=== PATIENT | female | born 1945 | race Native Hawaiian/Other Pacific Islander ===

== ENCOUNTER 2021-11-14 21:12 | Emergency (ER) | payer OTHER ==
[~2021-11-14] VITALS: Ht 162.6 cm; Wt 67.1 kg
[~2021-11-14 21:12] MED LIST: ACET160S2 PO; ACET650S18 RE; ALPR0.5T24 PO; AMMONIUM LACTATE12 % EX; BUSPIRONE7.5 MG PO; CLOP75TA2 PO; COUGH100 MG/5 M PO; DIPH25CA90 PO; DITROPAN XL10 MG PO; DOCU100C10 PO; GRALISE600 MG PO; HYDR5TAB9 PO; IMODIUM A-D PO; INCRUSE EL62.5 MCG/I IN; IPRATROPIUM/ IN; KP FOLIC ACID1 MG PO; LEVO0.1T6 PO; NYST100010 EX; OMEP40CA PO; PROZAC10 MG PO; REMERON SOLTAB15 MG PO; TRAM50TA PO; TRAZ50TA36 PO; VITAMIN C1 CH1 PO; ZANAFLEX2 MG PO; ZYPREXA ZYDI10 MG PO; [UNRECOGNIZED DRUG - OTHER] PO; [UNRECOGNIZED DRUG - OTHER] PR
[2021-11-14 22:03] LABS: PLATELET COUNT 212 K/uL (152-353)
[2021-11-14 22:16] LABS: POTASSIUM 3.5 mmol/L (3.6-5.2)
[2021-11-14 23:09] VITALS: BP 182/69; TEMP 98.7
[2021-11-15] MEDS ORDERED: ASPIR-8181 MG PO (13:12)
[2021-11-15] MEDS ORDERED: LIPITOR40 MG PO (13:12)
[2021-11-15] MEDS ORDERED: OXYC5TAB53 PO (13:14)
[2021-11-15] MEDS ORDERED: FE TABS325 MG PO (13:15)
[2021-11-15] MEDS ORDERED: GABA300C2 PO (13:15)
[2021-11-15] MEDS ORDERED: ALPR0.5T24 PO (13:18)
[2021-11-15] MEDS ORDERED: PANTOPRAZOLE SO40 M2 PO (13:19)
[2021-11-15] MEDS ORDERED: ZOLOFT25 MG PO (13:20)
[2021-11-15] MEDS ORDERED: CYCLOBENZAPRINE10 MG PO (13:48)
[2021-11-15] MEDS ORDERED: LOPERAMIDE2 MG PO (13:49)
== END 2021-11-14 23:11 | disposition still patient (30) ==
LOC: EDBD 21:12 → ED 21:12
PROVIDERS: Emergency Medicine
DX: R46.89 Other symptoms and signs involving appearance and behavior (principal); I10 Essential (primary) hypertension; Z11.52 Encounter for screening for COVID-19; Z04.6 Encounter for general psychiatric examination, requested by authority; F17.210 Nicotine dependence, cigarettes, uncomplicated
CPT/HCPCS: 36415; 80053; 85027; 87635; 93005; 99283; U0003

== ENCOUNTER 2021-12-23 03:05 | Emergency (ER) | payer OTHER ==
[~2021-12-23] VITALS: Ht 162.6 cm; Wt 65.3 kg
[~2021-12-23 03:05] MED LIST changes: +ABILIFY MYCITE5 MG PO; +ASPIR-8181 MG PO; +CLONAZEP ODT0.25 MG PO; +CYCLOBENZAPRINE10 MG PO; +DONE5TAB PO; +FE TABS325 MG PO; +GABA300C2 PO; +GABA400C2 PO; +LIPITOR40 MG PO; +LOPERAMIDE2 MG PO; +MAGN400T4 PO; +MELATONIN MAXIMU5 MG PO; +MEMA5TAB PO; +OXYC5TAB53 PO; +PANTOPRAZOLE SO40 M2 PO; +SERT50TA PO; +ZOLOFT25 MG PO
[2021-12-23 04:15] LABS: POTASSIUM 3.8 mmol/L (3.6-5.2)
[2021-12-23 04:23] LABS: PLATELET COUNT 186 K/uL (152-353)
[2021-12-23 06:23] VITALS: BP 176/80; TEMP 98.2
[2021-12-23] MEDS ORDERED: CEFUROXIME500 MG PO (10:20)
[2021-12-23] MEDS ORDERED: ALPR0.5T24 PO (10:21)
[2021-12-23] MEDS ORDERED: ZOLOFT25 MG PO (10:25)
[2021-12-23] MEDS ORDERED: MAGN400T4 PO (10:49)
[2021-12-23] MEDS ORDERED: SERT50TA PO (11:06)
== END 2021-12-23 06:25 | disposition home or self-care (01) ==
LOC: ED 03:05
PROVIDERS: Emergency Medicine
DX: F03.91 Unspecified dementia, unspecified severity, with behavioral disturbance (principal); Z11.52 Encounter for screening for COVID-19; Z04.6 Encounter for general psychiatric examination, requested by authority; Z79.899 Other long term (current) drug therapy; Z51.81 Encounter for therapeutic drug level monitoring
CPT/HCPCS: 36415; 80053; 81000; 85027; 87086; 87088; 87635; 93005; 99283; U0003

== ENCOUNTER 2022-02-04 22:14 | Emergency (ER) | payer OTHER ==
[~2022-02-04] VITALS: Ht 162.6 cm; Wt 66.2 kg
[~2022-02-04 22:14] MED LIST changes: +ARIPIPRAZOLE10 MG PO; +CEFUROXIME500 MG PO; +CETI10TA PO; +DIVA125C PO; +NYST100016 EX
[2022-02-04 22:30] VITALS: TEMP 98
[2022-02-04 22:57] LABS: PLATELET COUNT 147 K/uL (152-353)
[2022-02-04 23:07] LABS: POTASSIUM 3.7 mmol/L (3.6-5.2)
[2022-02-05 00:38] VITALS: BP 148/62
[2022-02-05] MEDS ORDERED: ARIPIPRAZOLE10 MG PO (12:53)
[2022-02-05] MEDS ORDERED: KP FOLIC ACID1 MG PO (12:55)
[2022-02-05] MEDS ORDERED: MELATONIN5 M4 PO (12:58)
[2022-02-05] MEDS ORDERED: PANTOPRAZOLE SO40 M1 PO (12:58)
[2022-02-05] MEDS ORDERED: SERT100T PO (12:59)
[2022-02-05] MEDS ORDERED: SERT50TA PO (13:00)
== END 2022-02-05 00:38 | disposition still patient (30) ==
LOC: ED 22:14
PROVIDERS: Emergency Medicine
DX: F25.8 Other schizoaffective disorders (principal); R45.1 Restlessness and agitation; R46.89 Other symptoms and signs involving appearance and behavior; Z11.52 Encounter for screening for COVID-19; Z04.6 Encounter for general psychiatric examination, requested by authority
CPT/HCPCS: 80053; 81000; 85027; 87635; 93005; 99283; U0003